=== PATIENT | female | born 1940 | race African-American/Black ===

== ENCOUNTER 2017-06-16 08:45 | Inpatient (IN) | payer MEDICARE, BC ==
[~2017-06-16] VITALS: Ht 162.6 cm; Wt 80.3 kg
[2017-06-16 08:00] VITALS: BP 115/71
[2017-06-16] MEDS ORDERED: METHYLPREDNISOLONE SOD SUCC 125 MG/2 ML VIAL IV STA (09:17)
[2017-06-16] MEDS ORDERED: IPRATROPIUM BROMIDE (0.02%) 0.5MG/2.5ML NEB HHN STA (09:17)
[2017-06-16] MEDS ORDERED: ALBUTEROL (0.083%) 2.5MG/3ML NEB HHN STA ×2 (09:17→13:14)
[2017-06-16 09:42] LABS: HEMATOCRIT. 37.8 % (36.0-48.0); HEMOGLOBIN. 12.8 g/dL (12.0-16.0); MEAN CORPUSCULAR HEMOGLOBIN 30.3 pg (28.0-32.0); MEAN CORPUSCULAR VOLUME 89.6 fL (81.0-99.0); PLATELET 185 x1000/uL (130-400); RED BLOOD CELL COUNT 4.21 mill/uL (4.2-5.4); RED CELL DISTRIBUTION WIDTH 13.8 % (11.6-14.6)
[2017-06-16 09:47] LABS: INR 1.1; PROTHROMBIN TIME 11.6 sec (9.4-11.6)
[2017-06-16 09:54] LABS: CHLORIDE 109 mEq/L (98-107)
[2017-06-16 10:00] LABS: TROPONIN I 0.09 ng/mL (0.00-0.04)
[2017-06-16 10:36] LABS: PLATELET ESTIMATE NORMAL
[2017-06-16 12:03] LABS: CLARITY URINE CLEAR (CLEAR); COLOR URINE YELLOW (YELLOW); KETONES URINE NEGATIVE (NEGATIVE); LEUKOCYTE ESTERASE URINE NEGATIVE (NEGATIVE); NITRITE URINE NEGATIVE (NEGATIVE); OCCULT BLOOD URINE NEGATIVE (NEGATIVE); PROTEIN URINE NEGATIVE (NEGATIVE); SPECIFIC GRAVITY URINE 1.018 (1.005-1.030); UROBILINOGEN URINE 0.2 E.U./dL (0.2-1.0)
[2017-06-16] MEDS ORDERED: ONDANSETRON HCL 4MG/2ML VIAL IV PRN (17:45)
[2017-06-16] MEDS ORDERED: IPRATROPIUM/ALBUTEROL 0.5-3(2.5)MG/3ML NEB INH PRN (17:45)
[2017-06-16] MEDS ORDERED: CLONIDINE 0.1MG TABLET PO PRN (17:45)
[2017-06-16] MEDS ORDERED: ACETAMINOPHEN 325MG TABLET PO PRN (17:45)
[2017-06-16] MEDS ORDERED: GUAIFENESIN 200MG/10ML SUGAR FREE UDC PO PRN (17:45)
[2017-06-16] MEDS ORDERED: DOCUSATE SODIUM 100MG CAPSULE PO PRN (17:45)
[2017-06-16] MEDS ORDERED: IPRATROPIUM/ALBUTEROL 0.5-3(2.5)MG/3ML NEB INH SCH (18:30)
[2017-06-16 19:28] VITALS: BP 127/73
[2017-06-16] MEDS: SPIRONOLACTONE 25MG TABLET PO SCH (19:30)
[2017-06-16] MEDS: CARVEDILOL 25MG TABLET PO SCH (19:30)
[2017-06-16] MEDS: APIXABAN 2.5 MG TABLET PO SCH (19:30)
[2017-06-16] MEDS ORDERED: LEVOFLOXACIN 500MG PREMIX 100 ML IV SCH (20:00)
[2017-06-16] MEDS ORDERED: PREG100C PO (20:31)
[2017-06-16] MEDS ORDERED: APIX2.5T PO (20:31)
[2017-06-16] MEDS ORDERED: ROSU40TA20 PO (20:31)
[2017-06-16] MEDS ORDERED: MONT10TA24 PO (20:31)
[2017-06-16] MEDS ORDERED: CARV25TA47 PO (20:31)
[2017-06-16] MEDS ORDERED: SPIR25TA4 PO (20:31)
[2017-06-17] VITALS: BP 105/45
[2017-06-17 04:00] VITALS: BP 102/49
[2017-06-17 06:27] LABS: BASOPHILS % 0.1 % (0.0-2.0); HEMATOCRIT. 34.7 % (36.0-48.0); LYMPHOCYTES % 12.1 % (20.0-50.0); MEAN CORPUSCULAR HEMOGLOBIN 30.6 pg (28.0-32.0); MEAN CORPUSCULAR VOLUME 88.6 fL (81.0-99.0); MEAN PLATELET VOLUME 8.7 fl (7.4-10.4); MONOCYTES % 3.8 % (2.0-8.0); PLATELET 179 x1000/uL (130-400); RED BLOOD CELL COUNT 3.91 mill/uL (4.2-5.4); RED CELL DISTRIBUTION WIDTH 13.7 % (11.6-14.6)
[2017-06-17 06:45] LABS: CHLORIDE 109 mEq/L (98-107)
[2017-06-17 06:53] LABS: HDL CHOLESTEROL 57 mg/dL (40-59); LDL CHOLESTEROL 64 mg/dL (5-100); TROPONIN I 0.07 ng/mL (0.00-0.04)
[2017-06-17 08:00] VITALS: BP 106/52
[2017-06-17] MEDS: SPIRONOLACTONE 25MG TABLET PO SCH (08:58)
[2017-06-17] MEDS: APIXABAN 2.5 MG TABLET PO SCH (08:58)
[2017-06-17] MEDS: CARVEDILOL 25MG TABLET PO SCH (09:01)
[2017-06-17 12:00] VITALS: BP 103/48
[2017-06-17 13:35] VITALS: BP 123/67
[2017-06-17 14:02] VITALS: BP 123/67
[2017-06-17] MEDS ORDERED: MONTELUKAST SODIUM 10MG TABLET PO SCH (17:00)
== END 2017-06-17 15:40 | disposition home or self-care (01) | DRG 189 ==
LOC: ER 09:41 → 7WST 13:15 → EDBEDREQTM 13:18 → EDBEDREQ 13:18 → ENRESERV 15:39
PROVIDERS: ADMIT Hospitalist; ATTEND Hospitalist
DX: J96.00 Acute respiratory failure, unspecified whether with hypoxia or hypercapnia (principal); D68.59 Other primary thrombophilia; I48.91 Unspecified atrial fibrillation; J45.901 Unspecified asthma with (acute) exacerbation; I25.10 Atherosclerotic heart disease of native coronary artery without angina pectoris; I50.9 Heart failure, unspecified; I11.0 Hypertensive heart disease with heart failure; Z60.2 Problems related to living alone; J20.9 Acute bronchitis, unspecified; Z79.01 Long term (current) use of anticoagulants; Z86.711 Personal history of pulmonary embolism; Z95.810 Presence of automatic (implantable) cardiac defibrillator; Z79.899 Other long term (current) drug therapy
CPT/HCPCS: 36415; 71045; 80053; 80061; 81003; 83880; 84484; 85025; 85610; 93005; 93306; 93970; 94640; 94644; 96374; 99285; J1956; J2930; J7030; J7611